=== PATIENT | female | born 2005 | race Caucasian/White ===

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

== ENCOUNTER 2024-01-27 20:06 | Emergency (ER) | payer OTHER ==
[~2024-01-27] VITALS: Ht 160 cm; Wt 131.5 kg
[~2024-01-27 20:06] MED LIST: CEFD300 PO
[2024-01-27 20:26] VITALS: BP 133/79
[2024-01-27] MEDS ORDERED: D5W-NS 500 ML IV SCH (22:10)
[2024-01-27] MEDS ORDERED: Metoclopramide HCl 5MG / ML 2ML Vial IV ONE (22:10)
[2024-01-27] MEDS ORDERED: Mag Hydrox/AL Hydrox/Simeth 30 ML UDC PO ONE (22:15)
[2024-01-27] MEDS ORDERED: Lactated Ringer's 1,000 ML IV ONE (22:20)
[2024-01-27] MEDS ORDERED: D5W NS IV SCH (22:20)
[2024-01-27 23:51] LABS: BASOPHILS ABSOLUTE AUTO 0.01 K/mm3 (0.00-0.23); BASOPHILS PERCENT AUTO 0 % (0-2); EOSINOPHILS ABSOLUTE AUTO 0.02 K/mm3 (0.00-0.68); EOSINOPHILS PERCENT AUTO 0 % (0-6); Hematocrit 42.1 % (33.0-51.0); Hemoglobin 13.9 g/dL (11.5-16.0); IMMATURE GRAN ABSOLUTE AUTO 0.03 K/mm3 (0.00-0.10); IMMATURE GRAN PERCENT AUTO 0 % (0-1); LYMPHOCYTES ABSOLUTE AUTO 1.79 K/mm3 (0.84-5.20); LYMPHOCYTES PERCENT AUTO 17 % (21-46); MONOCYTES ABSOLUTE AUTO 0.49 K/mm3 (0.16-1.47); MONOCYTES PERCENT AUTO 5 % (4-13); Mean Corpuscular HGB 27.3 pg (26.0-34.0); Mean Corpuscular Volume 83 fL (80-100); Mean Platelet Volume 11.5 fL (9.1-12.4); NEUTROPHILS ABSOLUTE AUTO 8.21 K/mm3 (1.96-9.15); NEUTROPHILS PERCENT AUTO 78 % (41-73); Platelet Count 312 K/mm3 (150-400); RDW Coefficient Variation 14.4 % (11.7-14.2); RDW Standard Deviation 42.9 fL (35.1-46.3); Red Blood Cell Count 5.09 M/mm3 (3.80-5.20); White Blood Cell Count 10.55 K/mm3 (4.00-11.30)
[2024-01-28 00:26] LABS: Magnesium, Blood 2.1 mg/dL (1.6-2.4)
[2024-01-28 00:27] LABS: Source, Urine Clean Catch
[2024-01-28 00:32] LABS: Albumin, Blood 3.9 g/dL (3.4-5.0); Albumin/Globulin Ratio 0.8 (0.8-1.8); Bilirubin, Total 0.5 mg/dL (0.1-1.0); Bun/Creatinine Ratio 12.9 (12.0-20.0); Calcium, Blood 9.7 mg/dL (8.5-10.1); Creatinine, Blood 0.46 mg/dL (0.40-1.00); Globulin, Blood 4.7 g/dL (2.2-4.0); Potassium, Blood 3.5 mmol/L (3.5-5.5); Total Protein, Blood 8.6 g/dL (6.4-8.2)
[2024-01-28 00:38] LABS: Bilirubin, Urine Neg (Neg); Blood, Urine 1+ (Neg); Glucose Qualitative, Urine Neg (Neg); Ketones, Urine 4+ (Neg); Leukocyte Esterase, Urine Neg (Neg); Nitrite, Urine Neg (Neg); Protein, Urine 1+ (Neg); Urobilinogen, Urine NORM (Normal)
[2024-01-28 00:43] LABS: Appearance, Urine Clear (Clear); Color, Urine Yellow (P-Yellow)
[2024-01-28 00:44] LABS: Amorphous Light (0-Heavy); Bacteria Mod /hpf; Red Blood Cells, Urine 0-2 /hpf (0-2); Squamous Epithelial Cells Few /hpf (Few)
[2024-01-28] MEDS ORDERED: METO10 PO (01:09)
== END 2024-01-28 01:28 | disposition home or self-care (01) ==
LOC: ER 20:06
PROVIDERS: Student in an Organized Health Care Education/Training Program
DX: O99.611 Diseases of the digestive system complicating pregnancy, first trimester (principal); A08.4 Viral intestinal infection, unspecified; O99.891 Other specified diseases and conditions complicating pregnancy; R10.9 Unspecified abdominal pain; O21.9 Vomiting of pregnancy, unspecified; E86.0 Dehydration; Z3A.11 11 weeks gestation of pregnancy; Z88.0 Allergy status to penicillin
CPT/HCPCS: 76801; 76817; 80053; 81001; 83735; 84702; 85025; 86900; 86901; 96374; 99284-25; A9270; J2765; J7042; J7120

== ENCOUNTER 2024-02-14 05:47 | Emergency (ER) | payer OTHER ==
[~2024-02-14] VITALS: Ht 162.6 cm; Wt 136.1 kg
[~2024-02-14 05:47] MED LIST changes: +METO10 PO
[2024-02-14] MEDS ORDERED: Ondansetron HCl 2 MG / ML 2ML Vial IV ONE (05:50)
[2024-02-14] MEDS ORDERED: NS 1,000 ML IV SCH (05:50)
[2024-02-14] MEDS ORDERED: ONDA4ODT MM (05:56)
[2024-02-14] MEDS ORDERED: PRENATAL TABLE1 EAC2 PO (05:56)
[2024-02-14 06:16] LABS: BASOPHILS ABSOLUTE AUTO 0.03 K/mm3 (0.00-0.23); BASOPHILS PERCENT AUTO 0 % (0-2); EOSINOPHILS ABSOLUTE AUTO 0.02 K/mm3 (0.00-0.68); EOSINOPHILS PERCENT AUTO 0 % (0-6); Hematocrit 46.6 % (33.0-51.0); Hemoglobin 15.5 g/dL (11.5-16.0); IMMATURE GRAN ABSOLUTE AUTO 0.03 K/mm3 (0.00-0.10); IMMATURE GRAN PERCENT AUTO 0 % (0-1); LYMPHOCYTES ABSOLUTE AUTO 1.51 K/mm3 (0.84-5.20); LYMPHOCYTES PERCENT AUTO 14 % (21-46); MONOCYTES ABSOLUTE AUTO 0.55 K/mm3 (0.16-1.47); MONOCYTES PERCENT AUTO 5 % (4-13); Mean Corpuscular HGB 27.8 pg (26.0-34.0); Mean Corpuscular HGB Conc 33.3 g/dL (31.5-36.5); Mean Corpuscular Volume 84 fL (80-100); Mean Platelet Volume 11.4 fL (9.1-12.4); NEUTROPHILS ABSOLUTE AUTO 9.05 K/mm3 (1.96-9.15); NEUTROPHILS PERCENT AUTO 81 % (41-73); Platelet Count 257 K/mm3 (150-400); RDW Standard Deviation 42.5 fL (35.1-46.3); Red Blood Cell Count 5.57 M/mm3 (3.80-5.20); White Blood Cell Count 11.19 K/mm3 (4.00-11.30)
[2024-02-14 06:45] LABS: Albumin/Globulin Ratio 0.8 (0.8-1.8); Bun/Creatinine Ratio 14.4 (12.0-20.0); Calcium, Blood 9.9 mg/dL (8.5-10.1); Creatinine, Blood 0.42 mg/dL (0.40-1.00); Globulin, Blood 5.3 g/dL (2.2-4.0); Potassium, Blood 3.4 mmol/L (3.5-5.5); Total Protein, Blood 9.3 g/dL (6.4-8.2)
[2024-02-14 08:44] VITALS: BP 119/90
== END 2024-02-14 08:47 | disposition home or self-care (01) ==
LOC: ER 05:47
PROVIDERS: Emergency Medicine
DX: O21.0 Mild hyperemesis gravidarum (principal); Z3A.13 13 weeks gestation of pregnancy; Z88.0 Allergy status to penicillin; Z79.899 Other long term (current) drug therapy
CPT/HCPCS: 80053; 83690; 85025; 96361; 96374; 99283-25; J2405; J7030

== ENCOUNTER → 2024-05-13 | Outpatient (CLI) | payer OTHER ==
[~2024-05-13] MED LIST changes: +ONDA4ODT MM; +PRENATAL TABLE1 EAC2 PO
== END ==
LOC: LAB SHORT 17:35 → LAB 17:35
DX: N39.0 Urinary tract infection, site not specified (principal)
CPT/HCPCS: 87086

== ENCOUNTER 2024-06-13 22:30 | Observation (INO) | payer OTHER ==
[~2024-06-13] VITALS: Ht 162.6 cm; Wt 129.0 kg
[2024-06-13 22:52] VITALS: BP 127/76
[2024-06-13] MEDS ORDERED: OxyCODONE HCL 5 MG TAB PO ONE (23:20)
[2024-06-14 00:32] LABS: BASOPHILS ABSOLUTE AUTO 0.01 K/mm3 (0.00-0.23); BASOPHILS PERCENT AUTO 0 % (0-2); EOSINOPHILS ABSOLUTE AUTO 0.06 K/mm3 (0.00-0.68); EOSINOPHILS PERCENT AUTO 0 % (0-6); Hematocrit 41.8 % (33.0-51.0); Hemoglobin 13.7 g/dL (11.5-16.0); IMMATURE GRAN ABSOLUTE AUTO 0.07 K/mm3 (0.00-0.10); IMMATURE GRAN PERCENT AUTO 1 % (0-1); LYMPHOCYTES ABSOLUTE AUTO 1.98 K/mm3 (0.84-5.20); LYMPHOCYTES PERCENT AUTO 15 % (21-46); MONOCYTES ABSOLUTE AUTO 0.58 K/mm3 (0.16-1.47); MONOCYTES PERCENT AUTO 4 % (4-13); Mean Corpuscular HGB 27.7 pg (26.0-34.0); Mean Corpuscular HGB Conc 32.8 g/dL (31.5-36.5); Mean Corpuscular Volume 85 fL (80-100); Mean Platelet Volume 12.6 fL (9.1-12.4); NEUTROPHILS ABSOLUTE AUTO 10.68 K/mm3 (1.96-9.15); NEUTROPHILS PERCENT AUTO 80 % (41-73); Platelet Count 257 K/mm3 (150-400); RDW Coefficient Variation 14.6 % (11.7-14.2); Red Blood Cell Count 4.94 M/mm3 (3.80-5.20); White Blood Cell Count 13.38 K/mm3 (4.00-11.30)
[2024-06-14 00:54] LABS: Albumin, Blood 3.1 g/dL (3.4-5.0); Albumin/Globulin Ratio 0.6 (0.8-1.8); Bilirubin, Total 0.3 mg/dL (0.1-1.0); Bun/Creatinine Ratio 10.4 (12.0-20.0); Calcium, Blood 10.1 mg/dL (8.5-10.1); Creatinine, Blood 0.48 mg/dL (0.40-1.00); Globulin, Blood 5.1 g/dL (2.2-4.0); Potassium, Blood 3.3 mmol/L (3.5-5.5); Total Protein, Blood 8.2 g/dL (6.4-8.2)
--- NOTE | 2024-06-14 01:30 | NUR ---
CALL PLACED TO [facility]. PREVIOUS ORDER TO TRANSFER TO ER WAS UNABLE TO BE COMPLETED. PT WOULD HAVE TO BE DC THEN TRAIGED VIA THE ER AGIAN. HOSPITATLIST CONSULT ORDERED AT THIS TIME.
--- NOTE | 2024-06-14 01:37 | NUR ---
HOSPITALIST CALLED AND WILL COME SEE PT SHORTLY.
[2024-06-14] MEDS ORDERED: FLU VACC TS2024-25(6MOS UP)/PF 45 MCG/0.5 ML SYRINGE IM SCH (02:25)
[2024-06-14] MEDS ORDERED: NS 1,000 ML IV SCH (02:25)
[2024-06-14] MEDS ORDERED: Ondansetron HCl 2 MG / ML 2ML Vial IV PRN (02:25)
[2024-06-14] MEDS ORDERED: FentaNYL Citrate 50 MCG/ML 2 ML Injection IV PRN (02:30)
[2024-06-14] MEDS ORDERED: CefTRIAXone Sodium 1,000 MG in NS 100 ML IV SCH (02:36)
[2024-06-14 03:02] LABS: Source, Urine Clean Catch
[2024-06-14 03:10] LABS: Bilirubin, Urine Neg (Neg); Blood, Urine Neg (Neg); Glucose Qualitative, Urine Neg (Neg); Ketones, Urine Neg (Neg); Leukocyte Esterase, Urine Neg (Neg); Nitrite, Urine Neg (Neg); Protein, Urine Neg (Neg); Specific Gravity, Urine 1.015 (1.003-1.022); Urobilinogen, Urine NORM (Normal); pH, Urine 6.5 (5.0-8.0)
[2024-06-14 03:25] LABS: Appearance, Urine Clear (Clear); Color, Urine Yellow (P-Yellow)
[2024-06-14] MEDS ORDERED: Potassium Chl 20MEQ/Water100ML 100 ML IV SCH (03:25)
[2024-06-14 04:31] VITALS: BP 138/88
--- NOTE | 2024-06-14 05:37 | NUR ---
ADMIT NOTE/SHIFT SUMMARY REPORT WAS RECEIVED FROM FAMILY NURSE AT 0426. PT WAS BROUGHT UP TO ROOM 302 VIA W/C. PT ALERT ORIENTED VERBALIZES NEEDS APPROPRIATELY. IS CURRENTLY RECEIVING 2 BAGS OF POTASSIUM FOR A LEVEL OF 3.3. SHES ALSO CURRENTLY ON NS AT 75 X 1 BAG. NO N/V ON ADMISSION. FAMILY AND SIG OTHER HERE AT BEDSIDE. SHES CURRENTLY NPO. NST WILL BE DONE Q SHIFT BY OB NURSE. THEY DID ONE THIS SHIFT AND EVERYTHING LOOKS GOOD. PT AND FAMILY WAS ORIENTED TO ROOM AND STAFF. C/O 2/!0 BACK PAIN. REMAINS ON TELE IN SINUS TACH WITH A RATE OF 108. ALL OTHER VS ARE STABLE ON RA. NO SKIN CONCERNS SEEN. C/O RT ARM BEING UNCOMFORTABLE R/T POTASSIUM GOING. WARM BLANKET WAS APPLIED AROUND HER ARM WHICH SEEMED TO HELP. SHES RESTING IN BED AT THIS TIME
[2024-06-14 06:18] LABS: BASOPHILS ABSOLUTE AUTO 0.01 K/mm3 (0.00-0.23); BASOPHILS PERCENT AUTO 0 % (0-2); EOSINOPHILS ABSOLUTE AUTO 0.05 K/mm3 (0.00-0.68); EOSINOPHILS PERCENT AUTO 0 % (0-6); Hemoglobin 11.7 g/dL (11.5-16.0); IMMATURE GRAN ABSOLUTE AUTO 0.05 K/mm3 (0.00-0.10); IMMATURE GRAN PERCENT AUTO 0 % (0-1); LYMPHOCYTES ABSOLUTE AUTO 1.68 K/mm3 (0.84-5.20); LYMPHOCYTES PERCENT AUTO 15 % (21-46); MONOCYTES ABSOLUTE AUTO 0.54 K/mm3 (0.16-1.47); MONOCYTES PERCENT AUTO 5 % (4-13); Mean Corpuscular HGB 28.1 pg (26.0-34.0); Mean Corpuscular HGB Conc 33.4 g/dL (31.5-36.5); Mean Corpuscular Volume 84 fL (80-100); Mean Platelet Volume 12.4 fL (9.1-12.4); NEUTROPHILS ABSOLUTE AUTO 9.18 K/mm3 (1.96-9.15); NEUTROPHILS PERCENT AUTO 80 % (41-73); Platelet Count 232 K/mm3 (150-400); RDW Coefficient Variation 14.6 % (11.7-14.2); Red Blood Cell Count 4.17 M/mm3 (3.80-5.20); White Blood Cell Count 11.51 K/mm3 (4.00-11.30)
[2024-06-14 06:48] LABS: Albumin, Blood 2.7 g/dL (3.4-5.0); Albumin/Globulin Ratio 0.7 (0.8-1.8); Bilirubin, Total 0.2 mg/dL (0.1-1.0); Bun/Creatinine Ratio 10.5 (12.0-20.0); Calcium, Blood 9.1 mg/dL (8.5-10.1); Creatinine, Blood 0.47 mg/dL (0.40-1.00); Globulin, Blood 4.1 g/dL (2.2-4.0); Potassium, Blood 3.6 mmol/L (3.5-5.5); Total Protein, Blood 6.8 g/dL (6.4-8.2)
--- NOTE | 2024-06-14 06:57 | NUR ---
DR. Burris CAME IN TO SEE THE PT. PT WAS C/O POTASSIUM IV BURNING TO MUCH. 2ND BAG OF POTASSIUM WAS HALF WAY DONE. STATED TO STOP THE POTASSIUM IV NOW AND GIVE POTASSIUM 20 PO. NOW. SHES ALSO C/O BACK PAIN SHES DUE FOR HER FENTANYL AT 0730. HE STATED THAT WE CAN GIVE HER A ONE TIME DOSE OF DILAUDID 1MG IV IF NEEDED.
[2024-06-14] MEDS ORDERED: HYDROmorphone HCl/Pf 1MG SYR IV ONE (07:05)
[2024-06-14] MEDS ORDERED: Potassium Chloride 10 Meq Tablet SA PO ONE (07:05)
[2024-06-14 07:52] VITALS: BP 137/92
--- NOTE | 2024-06-14 08:04 | NUR ---
MAGALIE MEDICATED FOR NAUSEA PRN IV ZOFRAN. SHORTLY AFTERWARDS, TELE CALLED STATING PATIENT TACHING UP INTO 150s. TO HALLWAY STATING PATIENT WITH VOMITING AND DIARRHEA. WILL NOTIFY PRIMARY.
[2024-06-14 10:04] VITALS: BP 128/85
--- NOTE | 2024-06-14 10:47 | NUR ---
PATIENT TRANSFERRED TO SURGICAL FLOOR VIA WHEELCHAIR WITH ALL BELONGINGS AND CHART AT 1000. REPORT TO DILSHAD MATA, FOR ASSUMPTION OF CARE. ACCOMPANIED BY MOTHER, VIJAY, AND ALTHEA DESOUZA.
--- NOTE | 2024-06-14 10:50 | NUR ---
ARRIVAL SUMMARY PT ARRIVED FROM MEDICAL FLOOR TO ROOM 211 VIA WC, REPORTS PAIN AND NAUSEA AT THIS TIME, ABLE TO MEDICATE FOR PAIN BUT TOO SOON FOR NAUSEA MEDS, OFFERED NON PHARMACOLOGIC INTERVENTIONS FOR NAUSEA FOR PATIENT TO TRY. REACHED OUT TO GEN SURG TO VERIFY CONSULT WHO REPORTS HE WILL COME SEE HER SOON, UPDATED MD OF HER TRANSFER TO THIS UNIT.
[2024-06-14 14:05] VITALS: BP 128/85
[2024-06-14 15:04] VITALS: BP 127/84
[2024-06-14 15:49] VITALS: BP 128/85
--- NOTE | 2024-06-14 18:28 | NUR ---
DISCHARGE/TRANSFER SUMMARY PT CONTINUED HAVING ABD/BACK/RIB PAIN UP TO THE TIME TRANSPORT ARRIVED TO PICK HER UP, MEDICATED FOR PAIN AND NAUSEA JUST PRIOR TO TRANSPORTING, SHE WAS ABLE TO AMBULATE TO THE BATHROOM TO PUT PANTS ON FOR TRANSPORT. REPORT CALLED TO RECEIVING FACILITY, TRANSPORT DEPARTED THE UNIT AT APPROX [id number] TODAY.
== END 2024-06-14 16:45 | disposition short-term general hospital (02) ==
LOC: BC 22:30 → OBS 22:30 → BC 22:31 → OBS 22:32 → BC 06-14 04:03 → OBS 06-14 04:03 → MEDS 06-14 04:06 → SURS 06-14 10:03 → MEDS 06-14 10:03 → SURS 06-14 10:03 → BC 06-14 16:45 → SURS 06-14 16:45
PROVIDERS: Family Medicine; ADMIT Internal Medicine
DX: O99.613 Diseases of the digestive system complicating pregnancy, third trimester (principal); K80.00 Calculus of gallbladder with acute cholecystitis without obstruction; O99.213 Obesity complicating pregnancy, third trimester; O98.813 Other maternal infectious and parasitic diseases complicating pregnancy, third trimester; Z88.1 Allergy status to other antibiotic agents; Z3A.32 32 weeks gestation of pregnancy
CPT/HCPCS: 36415; 59025; 76705; 80053; 81003; 83690; 83880; 85025; 96361; 96365; 96366; 96367; 96375; 96376; 99214; A9270; G0378; J0696; J2405; J3010; J3480; J7030

== ENCOUNTER 2024-08-22 02:44 | Inpatient (IN) | payer OTHER ==
[2024-08-22] VITALS (33 sets, daily range): BP systolic 104–155; BP diastolic 54–99
[~2024-08-22] VITALS: Ht 162.6 cm; Wt 124.3 kg
[2024-08-22] MEDS ORDERED: OXYTOCIN/RINGER'S LACTATE 500 ML IV PRN (03:45)
[2024-08-22] MEDS ORDERED: Ondansetron HCl 2 MG / ML 2ML Vial IV PRN (03:45)
[2024-08-22] MEDS ORDERED: FentaNYL 2mcg/ml-Bup 0.1% Epd 250 ML EPI PRN (03:45)
[2024-08-22] MEDS ORDERED: Methylergonovine Maleate 0.2MG / ML 1ML Amp IM PRN ×2 (03:45→15:10)
[2024-08-22] MEDS ORDERED: Lactated Ringer's 1,000 ML IV PRN ×2 (03:45→03:50)
[2024-08-22] MEDS ORDERED: ePHEDrine Sulfate 50 MG/ML 1ML Injection XX PRN (03:45)
[2024-08-22] MEDS ORDERED: Acetaminophen 500 MG Tab PO PRN (03:45)
[2024-08-22] MEDS ORDERED: Carboprost Tromethamine 250 MCG/ML 1ML Amp IM PRN (03:45)
[2024-08-22] MEDS ORDERED: Oxytocin 10 Unit / ML Vial IM PRN (03:45)
[2024-08-22] MEDS ORDERED: Lactated Ringer's 1,000 ML IV SCH ×2 (03:45→15:10)
[2024-08-22] MEDS ORDERED: Misoprostol 200 MCG Tab BC PRN (03:45)
[2024-08-22] MEDS ORDERED: Tranexamic Acid 100 ML IV SCH (03:45)
[2024-08-22] MEDS ORDERED: Misoprostol 200 MCG Tab PR PRN (03:45)
[2024-08-22] MEDS ORDERED: Calcium Carbonate 500 MG Tab Chew PO PRN (04:00)
[2024-08-22] MEDS ORDERED: FentaNYL Citrate 50 MCG/ML 2 ML Injection IV PRN (04:00)
[2024-08-22 04:32] LABS: BASOPHILS ABSOLUTE AUTO 0.03 K/mm3 (0.00-0.23); BASOPHILS PERCENT AUTO 0 % (0-2); EOSINOPHILS ABSOLUTE AUTO 0.02 K/mm3 (0.00-0.68); EOSINOPHILS PERCENT AUTO 0 % (0-6); Hemoglobin 12.7 g/dL (11.5-16.0); IMMATURE GRAN ABSOLUTE AUTO 0.04 K/mm3 (0.00-0.10); IMMATURE GRAN PERCENT AUTO 0 % (0-1); LYMPHOCYTES ABSOLUTE AUTO 1.79 K/mm3 (0.84-5.20); LYMPHOCYTES PERCENT AUTO 17 % (21-46); MONOCYTES ABSOLUTE AUTO 0.62 K/mm3 (0.16-1.47); MONOCYTES PERCENT AUTO 6 % (4-13); Mean Corpuscular HGB 27.1 pg (26.0-34.0); Mean Corpuscular HGB Conc 32.6 g/dL (31.5-36.5); Mean Corpuscular Volume 83 fL (80-100); Mean Platelet Volume 12.5 fL (9.1-12.4); NEUTROPHILS PERCENT AUTO 77 % (41-73); Platelet Count 261 K/mm3 (150-400); RDW Coefficient Variation 15.6 % (11.7-14.2); RDW Standard Deviation 46.7 fL (35.1-46.3); Red Blood Cell Count 4.69 M/mm3 (3.80-5.20)
[2024-08-22] MEDS ORDERED: OXYTOCIN/RINGER'S LACTATE 500 ML IV SCH ×2 (11:25→15:15)
[2024-08-22] MEDS ORDERED: Ibuprofen 400 MG Tab PO PRN (15:10)
[2024-08-22] MEDS ORDERED: Ketorolac Tromethamine 30mg Vial IV PRN (15:10)
[2024-08-22] MEDS ORDERED: Misoprostol 100 MCG Tab PO PRN (15:10)
[2024-08-22] MEDS ORDERED: Witch Hazel/Glycerin PADS TOP PRN (15:10)
[2024-08-22] MEDS ORDERED: Lanolin Cream TOP PRN (15:15)
[2024-08-22] MEDS ORDERED: Diphth,Pertuss(Acell),Tet Vac 0.5 ML VIAL IM SCH (15:15)
[2024-08-22] MEDS ORDERED: Docusate Sodium 100 MG Cap PO PRN (15:15)
[2024-08-22] MEDS ORDERED: FLU VACC TS2024-25(6MOS UP)/PF 45 MCG/0.5 ML SYRINGE IM SCH (15:15)
[2024-08-22] MEDS ORDERED: OxyCODONE 5 mg/Acetamin 325 mg TABLET PO PRN (15:15)
[2024-08-22] MEDS ORDERED: Acetaminophen 325 MG TABLET PO PRN (15:20)
[2024-08-22] MEDS ORDERED: Benzocaine Topical Anesthetic Spray 60GM TOP PRN (15:20)
[2024-08-23 02:15] VITALS: BP 117/75
[2024-08-23 07:25] VITALS: BP 111/74
[2024-08-23] MEDS ORDERED: Prenatal Vit/FE Fumarate/FA 1 Tab PO SCH (09:00)
[2024-08-23 09:23] LABS: Hematocrit 38.9 % (33.0-51.0); Hemoglobin 12.6 g/dL (11.5-16.0); Mean Corpuscular HGB 27.1 pg (26.0-34.0); Mean Corpuscular HGB Conc 32.4 g/dL (31.5-36.5); Mean Corpuscular Volume 84 fL (80-100); Mean Platelet Volume 12.5 fL (9.1-12.4); Platelet Count 217 K/mm3 (150-400); RDW Standard Deviation 48.1 fL (35.1-46.3); Red Blood Cell Count 4.65 M/mm3 (3.80-5.20); White Blood Cell Count 10.07 K/mm3 (4.00-11.30)
[2024-08-23 12:11] VITALS: BP 121/83
[2024-08-23 15:27] VITALS: BP 121/72
--- NOTE | 2024-08-23 16:04 | NUR ---
THIS RN WALKED PT OUT TO VEHICLE. PATIENT HAD NO FURTHER QUESTIONS OR CONCERNS. ADVISED PT TO CALL [facility] OR CNM OFFICE WITH ANY QUESTIONS OR CONCERNS.
== END 2024-08-23 16:00 | disposition home or self-care (01) | DRG 807 ==
LOC: OBS 02:44 → BC 02:46 → OBS 03:15 → BC 03:17
PROVIDERS: Advanced Practice Midwife; ADMIT Registered Nurse Community Health
PROC: 10E0XZZ Delivery of Products of Conception, External Approach (ICD-10-PCS; principal; 2024-08-22)
PROC: 0HQ9XZZ Repair Perineum Skin, External Approach (ICD-10-PCS; 2024-08-22)
PROC: 00HU33Z Insertion of Infusion Device into Spinal Canal, Percutaneous Approach (ICD-10-PCS; 2024-08-22)
PROC: 3E0R3BZ Introduction of Anesthetic Agent into Spinal Canal, Percutaneous Approach (ICD-10-PCS; 2024-08-22)
DX: O48.0 Post-term pregnancy (principal); Z37.0 Single live birth; Z3A.40 40 weeks gestation of pregnancy; Z88.1 Allergy status to other antibiotic agents; O70.0 First degree perineal laceration during delivery; Z39.2 Encounter for routine postpartum follow-up
CPT/HCPCS: 36415; 51702; 59025; 85025; 85027; 86850; 86900; 86901; 99211; 99214; A9270; C1751; J1885; J2405; J3010; J7120

== ENCOUNTER → 2024-10-22 | Outpatient (CLI) | payer OTHER ==
[2024-10-22 17:16] LABS: Source, Urine Clean Catch
[2024-10-22 19:07] LABS: Appearance, Urine Turbid (Clear); Bilirubin, Urine Neg (Neg); Blood, Urine Neg (Neg); Color, Urine Yellow (P-Yellow); Glucose Qualitative, Urine Neg (Neg); Ketones, Urine Neg (Neg); Leukocyte Esterase, Urine 1+ (Neg); Nitrite, Urine Neg (Neg); Protein, Urine 2+ (Neg); Urobilinogen, Urine NORM (Normal)
[2024-10-22 19:14] LABS: Amorphous Heavy (0-Heavy); Bacteria Few /hpf; Red Blood Cells, Urine 0-2 /hpf (0-2); Squamous Epithelial Cells Few /hpf (Few)
== END ==
LOC: LAB 17:13 → LAB SHORT 17:13
PROVIDERS: Advanced Practice Midwife
DX: N39.0 Urinary tract infection, site not specified (principal); A49.9 Bacterial infection, unspecified
CPT/HCPCS: 81001; 87086

== ENCOUNTER → 2025-07-20 | Outpatient (CLI) | payer OTHER | LOC: LAB SHORT 09:20 → LAB 09:20 | DX: R30.0 Dysuria (principal) | CPT/HCPCS: 87077; 87086; 87186 ==